=== PATIENT | male | born 1945 | race African-American/Black ===

== ENCOUNTER 2017-12-18 18:58 | Emergency (ER) | payer MEDICARE, OTHER ==
[~2017-12-18] VITALS: Ht 170.2 cm; Wt 66.0 kg
[2017-12-18] MEDS ORDERED: SIMV20TA6 PO (19:13)
[2017-12-18] MEDS ORDERED: ENOX40DI8 SQ (19:13)
[2017-12-18] MEDS ORDERED: HYDR-4001 PO (19:13)
[2017-12-18] MEDS ORDERED: POLY8.5P PO (19:13)
[2017-12-18] MEDS ORDERED: VERA-3 PO (19:13)
[2017-12-18] MEDS ORDERED: CIPR500S3 PO (19:13)
[2017-12-18] MEDS ORDERED: B50 GT (19:13)
[2017-12-18 19:51] LABS: BASOPHILS % 0.6 % (0.0-2.0); EOSINOPHILS % 2.3 % (0.0-5.0); HEMOGLOBIN. 10.2 g/dL (14.0-18.0); LYMPHOCYTES % 27.3 % (20.0-50.0); MEAN CORPUSCULAR HEMOGLOBIN 31.6 pg (28.0-32.0); MEAN CORPUSCULAR VOLUME 93.5 fL (80.0-94.0); MEAN PLATELET VOLUME 7.5 fl (7.4-10.4); MONOCYTES % 10.9 % (2.0-8.0); NEUTROPHILS % 58.9 % (40.0-76.0); PLATELET 230 x1000/uL (130-400); RED BLOOD CELL COUNT 3.21 mill/uL (4.7-6.1); RED CELL DISTRIBUTION WIDTH 13.8 % (11.6-14.6)
[2017-12-18 19:53] LABS: CHLORIDE 108 mEq/L (98-107); PROTHROMBIN TIME 10.4 sec (9.4-11.6)
[2017-12-18 21:15] VITALS: BP 146/88
== END 2017-12-19 05:44 | disposition home or self-care (01) ==
LOC: ER 18:59
DX: T83.83XA Hemorrhage due to genitourinary prosthetic devices, implants and grafts, initial encounter (principal); R31.9 Hematuria, unspecified; I10 Essential (primary) hypertension; E05.90 Thyrotoxicosis, unspecified without thyrotoxic crisis or storm; Z85.46 Personal history of malignant neoplasm of prostate; Z79.899 Other long term (current) drug therapy; Y82.8 Other medical devices associated with adverse incidents; Y92.9 Unspecified place or not applicable; Y83.8 Other surgical procedures as the cause of abnormal reaction of the patient, or of later complication, without mention of misadventure at the time of the procedure
CPT/HCPCS: 36415; 76857; 80053; 85025; 85610; 99285